=== PATIENT | male | born 1975 | race African-American/Black ===

== ENCOUNTER 2021-06-16 01:07 | Inpatient (IN) | payer MEDICARE, OTHER ==
[~2021-06-16] VITALS: Ht 180.3 cm; Wt 71.2 kg
[2021-06-16] MEDS ORDERED: ASPIRIN 325 MG TABLET PO ONE (01:30)
[2021-06-16] MEDS ORDERED: NITROGLYCERIN 0.4 MG/TAB BOTTLE SL ONE ×2 (01:30→01:43)
[2021-06-16] MEDS ORDERED: ASPIRIN 325 MG TABLET ONE (01:43)
[2021-06-16 01:47] LABS: HEMATOCRIT 32.9 % (36.7-47.1); MEAN CORPUSCULAR HEMOGLOBIN 30.5 uug (23.8-33.4); MEAN CORPUSCULAR VOLUME 94.1 fL (73.0-96.2); PLATELET COUNT (AUTO) 103 K/uL (152-348)
[2021-06-16 01:48] LABS: POTASSIUM 4.6 mmol/L (3.5-5.1)
[2021-06-16] MEDS ORDERED: ONDANSETRON 4 MG/2 ML VIAL IV ONE (02:00)
[2021-06-16] MEDS ORDERED: MORPHINE SULFATE 2 MG/1 ML DISP.SYRIN IV ONE (02:00)
[2021-06-16] MEDS ORDERED: PANTOPRAZOLE SODIUM 40 MG VIAL IV ONE (02:00)
[2021-06-16 02:01] LABS: CREATININE 10.6 mg/dL (0.6-1.3)
[2021-06-16 02:03] LABS: BILIRUBIN,DIRECT 0.1 mg/dL (0.0-0.2); BILIRUBIN,TOTAL 0.3 mg/dL (0.2-1.0); TOTAL PROTEIN, SERUM 8.5 g/dL (6.4-8.2)
[2021-06-16] MEDS ORDERED: ONDANSETRON 4 MG/2 ML VIAL ONE (02:15)
[2021-06-16] MEDS ORDERED: PANTOPRAZOLE SODIUM 40 MG VIAL ONE (02:16)
[2021-06-16] MEDS ORDERED: MORPHINE SULFATE 2 MG/1 ML DISP.SYRIN ONE ×3 (02:16→10:54)
[2021-06-16] MEDS ORDERED: DIPH1TAB PO (02:28)
[2021-06-16] MEDS ORDERED: GABA-532 PO (02:28)
[2021-06-16] MEDS ORDERED: DIPH50CA38 PO (02:28)
[2021-06-16] MEDS ORDERED: TRAM50TA2 PO (02:28)
[2021-06-16] MEDS ORDERED: AMIO200T5 PO (02:28)
[2021-06-16] MEDS ORDERED: PANT40TA49 PO (02:28)
[2021-06-16] MEDS ORDERED: diphenhydrAMINE 50 MG/1 ML VIAL IV ONE (02:45)
[2021-06-16] MEDS ORDERED: diphenhydrAMINE 50 MG/1 ML VIAL ONE (02:46)
[2021-06-16] MEDS ORDERED: HYDROMORPHONE 1 MG/1 ML DISP.SYRIN IV ONE ×2 (03:15→03:45)
[2021-06-16] MEDS ORDERED: HYDROMORPHONE 1 MG/1 ML DISP.SYRIN ONE ×2 (03:18→04:17)
[2021-06-16] MEDS ORDERED: IOHEXOL 350 100 ML INFUS..BTL ONE (03:18)
[2021-06-16] MEDS ORDERED: SWABABLE VALVE TRANSFER SET EA MC ONE (03:18)
[2021-06-16] MEDS ORDERED: IV NORMAL SALINE 250 ML IV ONE (03:18)
--- NOTE | 2021-06-16 04:10 | NUR ---
IV on the forearm infiltrated, restarted IV 20g L upper arm.
--- NOTE | 2021-06-16 04:36 | NUR ---
Dr. Mckeon on panel call with Dr. Trevino
--- NOTE | 2021-06-16 04:44 | NUR ---
Spoke with Nursing finishing area supervisor, no telemetry beds available at the moment, pt will stay in ER and possible be admitted to CCU in the morning.
[2021-06-16] MEDS ORDERED: HEPARIN SODIUM,PORCINE 5,000 UNITS/ML VIAL SQ SCH (04:45)
[2021-06-16] MEDS ORDERED: ACETAMINOPHEN 325 MG TABLET PO PRN (04:45)
[2021-06-16] MEDS ORDERED: ONDANSETRON 4 MG/2 ML VIAL IV PRN (04:45)
[2021-06-16] MEDS ORDERED: TRAMADOL HCL 50 MG TABLET PO PRN (04:45)
[2021-06-16] MEDS ORDERED: hydrALAZINE HCL 20 MG/1 ML VIAL IV PRN (04:45)
[2021-06-16] MEDS ORDERED: LABETALOL HCL 100 MG/20 ML VIAL IV PRN (04:45)
[2021-06-16] MEDS: MORPHINE SULFATE 2 MG/1 ML DISP.SYRIN IV PRN ×4 (06:05→21:20)
[2021-06-16] MEDS ORDERED: HEPARIN SODIUM,PORCINE 5,000 UNITS/ML VIAL ONE (06:11)
[2021-06-16] MEDS: PANTOPRAZOLE SODIUM 40 MG TABLET.DR PO SCH (07:10)
--- NOTE | 2021-06-16 07:10 | NUR ---
Hand off report given to mayco cobos
[2021-06-16] MEDS ORDERED: PANTOPRAZOLE SODIUM 40 MG TABLET.DR PO ONE (07:16)
[2021-06-16] MEDS ORDERED: AMIODARONE HCL 200 MG TABLET ONE (08:44)
[2021-06-16] MEDS ORDERED: GABAPENTIN 100 MG CAPSULE ONE (08:45)
[2021-06-16] MEDS ORDERED: diphenhydrAMINE 50 MG CAPSULE ONE (08:45)
[2021-06-16] MEDS: diphenhydrAMINE 50 MG CAPSULE PO SCH ×3 (09:08→18:33)
[2021-06-16] MEDS: AMIODARONE HCL 200 MG TABLET PO SCH (09:08)
[2021-06-16] MEDS: GABAPENTIN 100 MG CAPSULE PO SCH (09:09)
--- NOTE | 2021-06-16 09:11 | NUR ---
Gave pt breakfast tray. Pt opted to sleep instead.
--- NOTE | 2021-06-16 11:28 | NUR ---
Called report to DALY Johnston
--- NOTE | 2021-06-16 12:00 | NUR ---
receive pt from ER, report received from DALY Caicedo. pt c/o chest pain, admitted for SVC syndrome. pt BP running low 86-85 systolic, MD aware, pt a.ox4, right hand wrapped in curlix and óscar bandage from prior surgery a few weeks ago at [facility], Cierra in place, no signs if infection, no redness noted. cleaned, took photos and redressed wound. pt on 2L via NC, pt ambulatory, pt states he sometimes uses a walker/wheelchair at home when needed. pt is anuric, dialysis schedule is M/W/F. Iv on the left UA 20g, bed low and locked, call light within reach, willl continue with plan of care.
[2021-06-16 13:26] VITALS: BP 84/37
[2021-06-16 16:00] VITALS: BP 85/42
--- NOTE | 2021-06-16 16:00 | NUR ---
Spoke with Dr. Whalen, Dialysis scheduled for tomorrow AM 06/17/2021 at 0900.
--- NOTE | 2021-06-16 19:30 | NUR ---
Received pt awake, alert and orientedx4. Pt in no acute distress. Iv intact. Pt on 2l nasal cannula. Pt on Sinus rhythm. Safety and comfort provided. Will continue to monitor.
[2021-06-16 20:20] VITALS: BP 127/35
[2021-06-16] MEDS: HEPARIN SODIUM,PORCINE 5,000 UNITS/ML VIAL SQ SCH (21:28)
--- NOTE | 2021-06-16 22:30 | NUR ---
At 2120h Morphine 2mg prn given to pt for pain. Pt tolerated it well. Pt stated he felt better after an hour. Safety and comfort provided. Will continue to monitor.
[2021-06-17] VITALS: BP 105/60
[2021-06-17] MEDS: MORPHINE SULFATE 2 MG/1 ML DISP.SYRIN IV PRN ×3 (03:36→21:15)
[2021-06-17 04:15] VITALS: BP 119/47
--- NOTE | 2021-06-17 05:20 | NUR ---
Pt given morphine 2mg prn at 0336h. Pt tolerated it well. Will continue to monitor.
[2021-06-17] MEDS: PANTOPRAZOLE SODIUM 40 MG TABLET.DR PO SCH (06:27)
--- NOTE | 2021-06-17 06:34 | NUR ---
Pt slept intermittently, Pt in no acute distress. Iv intact. Safety and comfort provided. Pt stable. All needs are met . Dressing change. Pt doesn't want to be repositioned to his sides. Pt oxygen on 4l. Will endorse to incoming nurse for continuity of care. Addendum: 06/17/21 at 0637 by NICO REYNOLDS RN wrong pt.
--- NOTE | 2021-06-17 06:39 | NUR ---
Pt slept intermittently, Pt in no acute distress. Iv intact. Safety and comfort provided. Pt stable. Non-administered medication of protonix because pt will have a procedure to prevent aspiration. . All needs are met . Pt oxygen on 2l. Will endorse to incoming nurse for continuity of care.
[2021-06-17 07:37] LABS: HEMATOCRIT 32.4 % (36.7-47.1); MEAN CORPUSCULAR HEMOGLOBIN 30.6 uug (23.8-33.4); MEAN CORPUSCULAR VOLUME 94.6 fL (73.0-96.2); PLATELET COUNT (AUTO) 117 K/uL (152-348)
[2021-06-17 07:52] LABS: ALANINE AMINOTRANSFERASE 10 U/L (16-63); ALKALINE PHOSPHATASE 74 U/L (50-136); ASPARTATE AMINOTRANSFERASE 15 U/L (15-37); BILIRUBIN,TOTAL 0.3 mg/dL (0.2-1.0); CARBON DIOXIDE 27 mmol/L (21-32); CHLORIDE 96 mmol/L (98-107); GLUCOSE 74 mg/dL (74-106); TOTAL PROTEIN, SERUM 8.1 g/dL (6.4-8.2)
[2021-06-17] MEDS ORDERED: SWABABLE VALVE TRANSFER SET EA MC ONE (08:17)
[2021-06-17] MEDS ORDERED: IV NORMAL SALINE 250 ML IV ONE (08:17)
[2021-06-17] MEDS ORDERED: IOHEXOL 300MG/ML 100 ML INFUS..BTL ONE (08:17)
[2021-06-17 08:29] LABS: POTASSIUM 7.1 mmol/L (3.5-5.1); UREA NITROGEN, BLOOD 88 mg/dL (7-18)
[2021-06-17 08:30] VITALS: BP 82/28
[2021-06-17 08:30] LABS: CREATININE 12.6 mg/dL (0.6-1.3)
[2021-06-17] MEDS: diphenhydrAMINE 50 MG CAPSULE PO SCH ×3 (09:00→17:00)
[2021-06-17] MEDS: AMIODARONE HCL 200 MG TABLET PO SCH (09:00)
[2021-06-17] MEDS: GABAPENTIN 100 MG CAPSULE PO SCH (09:00)
--- NOTE | 2021-06-17 09:02 | NUR ---
Received pt, pt IV not patent, attempted insertion of new IV but no viable veins, track walker notified, supervisor cell maintenance notified of need for midline insertion. Pt has four critical lab values: potassium 7.1, BUN 88, creatinine 12.6, phosphorus 9.4, BP 82/28 MD notified. Per previous nursing notes, pt scheduled for dialysis this am for 0900. Pt was scheduled for CT of neck today but pending midline insertion. Pt stated he feels fluid build up, build up visible in left arm when attempting to insert peripheral IV during knot tie. Removed old IV, Will continue to monitor pt.
[2021-06-17] MEDS ORDERED: SODIUM POLYSTYRENE SULFONATE 15 G/60 ML LIQUID UDC PO ONE (10:00)
[2021-06-17] MEDS: HEPARIN SODIUM,PORCINE 5,000 UNITS/ML VIAL SQ SCH ×2 (10:04→20:18)
[2021-06-17] MEDS ORDERED: HYDROCODONE/APAP 5-325MG TABLET PO PRN (10:45)
--- NOTE | 2021-06-17 11:05 | NUR ---
WOUND CARE CONSULT; PT PRESENTS WITH WRAPPED RT UPPER EXTREMITY WITH MICHELLE IN HAND PHOTO FROM ADMISSION. PT STATES HE WILL FOLLOW UP WITH HIS HAND SURGEON, DR BOBBY AUGUSTE AFTER DISCHARGE. DRESSING IS DRY AND INTACT AT THIS TIME. WILL SEE PRN.
[2021-06-17 11:46] VITALS: BP 96/40
[2021-06-17] MEDS: diphenhydrAMINE 50 MG/1 ML VIAL IV PRN ×2 (12:52→20:16)
[2021-06-17 16:00] VITALS: BP 103/37
--- NOTE | 2021-06-17 16:26 | NUR ---
Pt signed consent for hemodialysis and had hemodialysis starting at 1150 until 1600, 1800cc have been removed. Pt's vitals post hemodialysis BP 108/64, HR 62. Pt received dose of morphine for pain, comfort measures provided, call light within reach.
[2021-06-17 20:00] VITALS: BP 100/59
[2021-06-18] MEDS: MORPHINE SULFATE 2 MG/1 ML DISP.SYRIN IV PRN ×5 (01:17→23:02)
[2021-06-18] MEDS: diphenhydrAMINE 50 MG/1 ML VIAL IV PRN ×4 (02:38→23:02)
[2021-06-18 04:30] VITALS: BP 99/32
--- NOTE | 2021-06-18 05:39 | NUR ---
Pt slept thorughout the night. Denies SOB or pain at this time. Pt c/o right hand pain intermittently throughout the night, relieved with Morphine. Safety and comfort provided to patient. Will endorse to day shift.
[2021-06-18] MEDS: PANTOPRAZOLE SODIUM 40 MG TABLET.DR PO SCH (06:22)
[2021-06-18 08:30] VITALS: BP 108/49
[2021-06-18] MEDS: diphenhydrAMINE 50 MG CAPSULE PO SCH ×3 (09:00→17:00)
[2021-06-18] MEDS: GABAPENTIN 100 MG CAPSULE PO SCH (09:10)
[2021-06-18] MEDS: HEPARIN SODIUM,PORCINE 5,000 UNITS/ML VIAL SQ SCH ×2 (09:11→20:27)
[2021-06-18] MEDS: AMIODARONE HCL 200 MG TABLET PO SCH (09:12)
[2021-06-18] MEDS ORDERED: IV NORMAL SALINE 250 ML IV ONE (09:44)
[2021-06-18] MEDS ORDERED: SWABABLE VALVE TRANSFER SET EA MC ONE (09:44)
[2021-06-18] MEDS ORDERED: IOHEXOL 300MG/ML 100 ML INFUS..BTL ONE (09:44)
[2021-06-18 10:06] LABS: HEPATITIS B SURFACE AG Negative (Negative)
[2021-06-18 10:20] LABS: CREATININE 9.7 mg/dL (0.6-1.3)
[2021-06-18 10:59] VITALS: BP 102/29
--- NOTE | 2021-06-18 11:25 | NUR ---
Pt is a/o x 4, has pain in upper arm and back, requests medication as needed. pt went for CT today at 1020 and is scheduled for hemodialysis today as well. Possible discharge after completion of hemodialysis. comfort measures provided, call light within reach. Will continue to monitor.
--- NOTE | 2021-06-18 15:15 | NUR ---
Clinical Social Work Note SW consult was requested for housing resources. Patient is a 46 year old male who is alert and oriented x4. Patient presents with a normal mood and congruent affect. SW advised the patient she came to provide housing resources. Patient quickly got upset and stated that he was not homeless and he had a home. Patient shared his address is [address] [place], [place] [id number]. Patient stated that he did not need any homeless resources. Patient stated that he is interested in home health services upon discharge. Plan: MARIO will follow up with housing case manager to have patient set up with home health.
[2021-06-18 15:32] VITALS: BP 116/72
--- NOTE | 2021-06-18 18:16 | NUR ---
Pt had CT today. Pt also had hemodialysis today post CT. 2000cc removed from 1300 to 1600. Pt tolerated well. BMP ordered for pt but cannot be done until at least 3 hours post hemodialysis, notified and postponed lab draws until 0600 due to no seed expert in lab during fast food shift lead tonight. Pt notified that he will not be discharged tonight as that was the previous plan.
--- NOTE | 2021-06-18 20:31 | NUR ---
sitting in the bed.complaints of stomach upset. no bm for several days. will need to inform the phtysicina onb duty Addendum: 06/18/21 at 2051 by [facility] RN1 RN MAGNOLIA Soriano paged and informed about the patient with no bm and gastric upset.with orders and carried out
[2021-06-18 20:53] VITALS: BP 102/33
[2021-06-18] MEDS ORDERED: LACTULOSE 20 G/30 ML LIQUID UDC PO ONE (21:00)
[2021-06-19] MEDS: MORPHINE SULFATE 2 MG/1 ML DISP.SYRIN IV PRN ×4 (03:24→22:59)
[2021-06-19 03:59] VITALS: BP 114/55
[2021-06-19] MEDS: PANTOPRAZOLE SODIUM 40 MG TABLET.DR PO SCH (06:11)
[2021-06-19] MEDS: diphenhydrAMINE 50 MG/1 ML VIAL IV PRN ×2 (06:12→18:28)
[2021-06-19 06:50] LABS: HEMATOCRIT 28.3 % (36.7-47.1); MEAN CORPUSCULAR HEMOGLOBIN 30.7 uug (23.8-33.4); MEAN CORPUSCULAR VOLUME 93.9 fL (73.0-96.2); PLATELET COUNT (AUTO) 98 K/uL (152-348)
[2021-06-19 07:29] LABS: CREATININE 8.6 mg/dL (0.6-1.3); MAGNESIUM 2.2 mg/dL (1.8-2.4)
[2021-06-19 08:00] VITALS: BP 100/34
[2021-06-19] MEDS: diphenhydrAMINE 50 MG CAPSULE PO SCH ×4 (09:09→17:50)
[2021-06-19] MEDS: GABAPENTIN 100 MG CAPSULE PO SCH (09:09)
[2021-06-19] MEDS: AMIODARONE HCL 200 MG TABLET PO SCH (09:09)
[2021-06-19] MEDS: HEPARIN SODIUM,PORCINE 5,000 UNITS/ML VIAL SQ SCH (09:11)
[2021-06-19] MEDS ORDERED: INSULIN REGULAR, HUMAN 300 UNIT/3 ML VIAL IV ONE (10:00)
[2021-06-19] MEDS ORDERED: DEXTROSE 50% 50 ML DISP.SYRIN IV ONE (10:00)
[2021-06-19 12:04] VITALS: BP 104/44
[2021-06-19] MEDS: APIXABAN 2.5 MG TABLET PO SCH ×2 (13:04→22:22)
[2021-06-19 15:58] VITALS: BP 99/32
[2021-06-19 16:58] LABS: CREATININE 9.1 mg/dL (0.6-1.3); POTASSIUM 6.2 mmol/L (3.5-5.1)
[2021-06-19] MEDS ORDERED: SODIUM POLYSTYRENE SULFONATE 15 G/60 ML LIQUID UDC PO ONE (17:45)
--- NOTE | 2021-06-19 18:58 | NUR ---
Pt is a/o x 4, has pain in upper arm and back, requests medication as needed. pt had labs today receive critical results K=6.2 and creatinine=9.1 notified POLL WATCHER Bo with new order for Kayexalate 30 GM now and is scheduled for hemodialysis today as well.to completion of hemodialysis.medicated with Benadryl as order and Morphine foe pain as order comfort measures provided, call light within reach. Will continue to monitor.
--- NOTE | 2021-06-19 19:37 | NUR ---
Received with ongoing hemodialysis. tolerating well
--- NOTE | 2021-06-19 19:44 | NUR ---
Dr Craig paged about the patient orders for both Eliquis and is on heparin to verify the order. message left awaiting response Addendum: 06/19/21 at 1948 by [facility] RN1 RN hbg 10.7 to 9.2 .with orders to discontinue the heparin
[2021-06-19 20:18] VITALS: BP 96/44
--- NOTE | 2021-06-19 21:54 | NUR ---
hemodialysis completed and took 500 ml fluid. tolerated well. to the commode for bm.with call light within reach
--- NOTE | 2021-06-19 22:51 | NUR ---
large amount of non formed bm brownish in color. cleaned and kept dry,
[2021-06-20] MEDS: diphenhydrAMINE 50 MG/1 ML VIAL IV PRN ×2 (01:18→08:55)
--- NOTE | 2021-06-20 02:41 | NUR ---
Dr Carias ordered and change morphine to dilaudid as morphine he claims do not relieve the pain
[2021-06-20] MEDS ORDERED: HYDROMORPHONE 1 MG/1 ML DISP.SYRIN IV PRN (02:45)
[2021-06-20] MEDS: HYDROMORPHONE 1 MG/1 ML DISP.SYRIN IV PRN ×3 (03:19→13:36)
[2021-06-20 04:15] VITALS: BP 100/45
[2021-06-20] MEDS: PANTOPRAZOLE SODIUM 40 MG TABLET.DR PO SCH (06:46)
[2021-06-20 07:17] LABS: HEMATOCRIT 27.4 % (36.7-47.1); MEAN CORPUSCULAR HEMOGLOBIN 30.3 uug (23.8-33.4); MEAN CORPUSCULAR VOLUME 93.5 fL (73.0-96.2); PLATELET COUNT (AUTO) 98 K/uL (152-348)
[2021-06-20 07:28] LABS: CREATININE 6.2 mg/dL (0.6-1.3); MAGNESIUM 2.1 mg/dL (1.8-2.4); PHOSPHOROUS 6.1 mg/dL (2.5-4.9)
[2021-06-20] MEDS: GABAPENTIN 100 MG CAPSULE PO SCH (08:38)
[2021-06-20] MEDS: APIXABAN 2.5 MG TABLET PO SCH (08:39)
[2021-06-20] MEDS: diphenhydrAMINE 50 MG CAPSULE PO SCH ×3 (08:39→17:00)
[2021-06-20] MEDS: AMIODARONE HCL 200 MG TABLET PO SCH (08:39)
[2021-06-20 12:00] VITALS: BP 106/48
[2021-06-20] MEDS ORDERED: APIX2.5T PO (14:57)
[2021-06-20 16:44] VITALS: BP 100/46
--- NOTE | 2021-06-20 17:44 | NUR ---
discharge instructions given to patient. Pt refused to have pix on right hand trigger finger release surgery. Prescription given to patient for eliquis. Discussed purpose of meds and its side effects. Instructed pt to f/u with his primary doctor and out pt fistulogram. Pt is in no acute distress. Pt denies any c/o pain.
--- NOTE | 2021-06-20 19:06 | NUR ---
Pt d/c home as ordered via taxi voucher. Pt is in no acute distress upon discharge.
--- NOTE | 2021-06-20 19:50 | NUR ---
Morphine 2mg added with undocumented administration for 06/18/21 at 0117H.
== END 2021-06-20 19:00 | disposition home health service (06) | DRG 314 ==
LOC: ER 01:10 → TRANSITION 05:35 → TELE3 11:39 → MEDSURG3 06-18 06:56
PROVIDERS: ADMIT Nurse Practitioner Acute Care; ATTEND Nurse Practitioner Acute Care
PROC: 5A1D70Z Performance of Urinary Filtration, Intermittent, Less than 6 Hours Per Day (ICD-10-PCS; principal; 2021-06-17)
PROC: 05HA33Z Insertion of Infusion Device into Left Brachial Vein, Percutaneous Approach (ICD-10-PCS; 2021-06-17)
PROC: 5A1D70Z Performance of Urinary Filtration, Intermittent, Less than 6 Hours Per Day (ICD-10-PCS; 2021-06-18)
PROC: 5A1D70Z Performance of Urinary Filtration, Intermittent, Less than 6 Hours Per Day (ICD-10-PCS; 2021-06-19)
DX: T82.868A Thrombosis due to vascular prosthetic devices, implants and grafts, initial encounter (principal); N18.6 End stage renal disease; I82.210 Acute embolism and thrombosis of superior vena cava; T86.12 Kidney transplant failure; I82.B11 Acute embolism and thrombosis of right subclavian vein; I82.890 Acute embolism and thrombosis of other specified veins; I87.1 Compression of vein; Z99.2 Dependence on renal dialysis; J01.00 Acute maxillary sinusitis, unspecified; J32.0 Chronic maxillary sinusitis; I48.0 Paroxysmal atrial fibrillation; K62.9 Disease of anus and rectum, unspecified; D64.9 Anemia, unspecified; D75.839 Thrombocytosis, unspecified; E87.5 Hyperkalemia; K21.9 Gastro-esophageal reflux disease without esophagitis; Z98.890 Other specified postprocedural states; Z79.899 Other long term (current) drug therapy; Y83.9 Surgical procedure, unspecified as the cause of abnormal reaction of the patient, or of later complication, without mention of misadventure at the time of the procedure; Y92.89 Other specified places as the place of occurrence of the external cause
CPT/HCPCS: 36415; 70030-TC; 70450; 70491; 71045; 71275; 83735; 84100; 85025; 86706; 87340; 93005; 93307; 97161; A4663; C9113; G0378; J1170; J1200; J1644; J1815; J2270; J2405; J3490; J7030; J7050; Q0163; Q9967